=== PATIENT | male | born 1945 | race Caucasian/White ===

== ENCOUNTER → 2016-06-16 | Outpatient (CLI) | payer OTHER | LOC: BHCLAF 10:00 | PROVIDERS: ATTEND Internal Medicine Cardiovascular Disease | DX: Z01.810 Encounter for preprocedural cardiovascular examination (principal); I49.5 Sick sinus syndrome; Z95.0 Presence of cardiac pacemaker; E78.5 Hyperlipidemia, unspecified | CPT/HCPCS: 93005-PO ==

== ENCOUNTER 2017-11-06 15:26 | Emergency (ER) | payer OTHER, MEDICARE ==
[2017-11-06 15:38] VITALS: BP 140/85
--- NOTE | 2017-11-06 16:12 | EDPHY ---
H & P Time Seen by Provider: 11/06/17 15:36 HPI/ROS: HPI Left leg laceration. 72-year-old male by private vehicle with his . This patient was working on his house. He was installing a pipe and cutting a hole into the wall with a hole cutting saw. The saw fell as he was trying to do this and glanced his left posterior mid leg. He sustained a laceration and abrasion to this area. He has had a tetanus shot within the last 10 years. He has no other complaint. ROS: Constitutional: No fever, no chills. No weakness. Musculoskeletal: No back pain. No neck pain. As above. Skin: No rashes. As above. Neurological: No focal weakness or altered sensation. Past medical history: Pacemaker, left wrist surgery, back surgery, right shoulder surgery. Social history: Here with his . Nonsmoker. No alcohol. Physical Exam: General Appearance: Alert, no distress. This patient is responding to questions appropriately and in full sentences. This patient appears well- hydrated and well-nourished. Head: Normocephalic atraumatic. Eyes: Pupils equal and round no pallor or injection. No lid edema, erythema or injection. Left leg exam: He has several parallel clot like abrasions from the teeth of the hole saw mid posterior left leg. These are about 1 cm apart. There about 6 or 7 of them. They are abrasions and not suturable laceration. The dermis has not been breached. No evidence of foreign body on gross inspection. The left lower extremity is neurovascularly intact. Neurological: Motor sensory function is grossly intact. Cranial nerves are normal. Gait is normal. Skin: Warm and dry, no rashes. Musculoskeletal: Neck is supple and nontender. Extremities are symmetrical. All joints range without pain or impingement. Psychiatric: No agitation. No depression. Database: EKG: Imaging: Procedures: Emergency department course: Triage vital signs reviewed. Patient is presents with nonsuturable deep abrasions as noted above. Wounds were cleansed and dressed appropriately. He feels comfortable going home. Follow-up and return to emergency department precautions reviewed. Wound care instructions discussed. All of his questions were answered. He was discharged in good condition. Differential Diagnosis: The differential diagnosis on this patient includes but is not limited to abrasions to posterior left leg. Suturable laceration, retained foreign body in wound, significant neurovascular injury unlikely. This represents a partial list of diagnoses considered. These considerations are based on history, physical exam, past history, reassessment and diagnostic testing. Smoking Status: Never smoked Constitutional: Initial Vital Signs Temperature (C) 36.6 C 11/06/17 15:35 Heart Rate 72 11/06/17 15:35 Respiratory Rate 16 11/06/17 15:35 Blood Pressure 140/85 H 11/06/17 15:35 O2 Sat (%) 94 11/06/17 15:35 Allergies/Adverse Reactions: NSAIDS (Non-Steroidal Anti-Inflamma [Nsaids] Allergy (Unknown, Verified 11:38) ibuprofen [Ibuprofen] Allergy (Verified 07/03/15 11:38) morphine Allergy (Verified 11/06/17 15:58) Home Medications: Medication Instructions Recorded Aspirin [Aspirin 81mg (*)] 81 mg PO DAILY 07/03/15 Bupropion HCl [Wellbutrin Xl] 300 mg PO DAILY 07/03/15 Calcium Carb W/Vit D [Calcium Carb 500 mg PO DAILY 07/03/15 W/Vit D 500/200 (*)] Escitalopram Oxalate [Lexapro 10 15 mg PO DAILY 07/03/15 MG] Fluticasone Nasal [Flonase Nasal 2 sprays [place] DAILY 07/03/15 [place]] Herbals/Supplements -Info Only 1 ea PO DAILY 07/03/15 [place]-3 Fatty Acids [Fish Oil 1000 1,000 mg PO BID 07/03/15 mg (*)] Rosuvastatin Calcium 11/06/17 Departure - Departure Disposition: Home, Routine, Self-Care Clinical Impression: Abrasion of left leg Condition: Good Instructions: Abrasion (ED) Additional Instructions: Read and follow provided instructions. Follow-up with your primary care physician as needed in 2 days for wound check. Return to the emergency department for worsening pain, swelling, bleeding, redness around the wound area or other serious concerns. Referrals: Sherron Feliciano, [facility] [Primary Care Provider] - As per Instructions
== END 2017-11-06 16:26 | disposition home or self-care (01) ==
LOC: CED 15:26
DX: S80.812A Abrasion, left lower leg, initial encounter (principal); W31.2XXA Contact with powered woodworking and forming machines, initial encounter; Y92.019 Unspecified place in single-family (private) house as the place of occurrence of the external cause; Y93.E9 Activity, other interior property and clothing maintenance; Y99.8 Other external cause status